=== PATIENT | female | born 1930 | race Caucasian/White ===

== ENCOUNTER → 2017-08-26 | Emergency (ER) | payer OTHER ==
[~2017-08-26] VITALS: Ht 154.9 cm; Wt 65.8 kg
[~2017-08-26] MED LIST: COZAAR100 MG; COZAAR50 MG; NORVASC2.5 M1; RAZADYNE ER16 M1; SYNTHROID100 MCG; TROMBONEX CAPS1 EACH
== END | disposition home or self-care (01) ==
LOC: ER 11:37
DX: S00.03XA Contusion of scalp, initial encounter (principal); I10 Essential (primary) hypertension; W18.2XXA Fall in (into) shower or empty bathtub, initial encounter; Y93.E8 Activity, other personal hygiene; Y92.012 Bathroom of single-family (private) house as the place of occurrence of the external cause; Y99.8 Other external cause status